=== PATIENT | male | born 1950 ===

== ENCOUNTER 2023-08-13 09:53 | Day surgery (SDC) | payer MEDICARE, BC ==
[~2023-08-13 09:53] MED LIST: Sodium Chloride 0.9% 10 ML Syringe FLUSH PRN; Sodium Chloride 0.9% 10 ML Syringe FLUSH SCH
[2023-08-13] MEDS: Lactated Ringers 1,000 ML IV SCH (10:25)
[2023-08-13] MEDS ORDERED: fentaNYL 100 MCG/2 ML SDV IVPUSH PRN (11:47)
[2023-08-13] MEDS ORDERED: HYDROmorphone 0.5 MG/0.5 ML Syringe IVPUSH PRN (11:47)
[2023-08-13] MEDS ORDERED: Ondansetron 4 MG/2 ML SDV IVPUSH PRN (11:47)
[2023-08-13] MEDS ORDERED: Ondansetron 4 MG/2 ML SDV ONE (11:48)
[2023-08-13] MEDS ORDERED: Propofol 200 MG/20 ML SDV ONE (11:48)
[2023-08-13] MEDS ORDERED: ceFAZolin 2 GM Vial ONE (11:48)
[2023-08-13] MEDS ORDERED: Lidocaine 1% 5 ML VIAL ONE (11:48)
[2023-08-13] MEDS ORDERED: Midazolam 1 MG/ML 2 ML SDV ONE (11:48)
[2023-08-13] MEDS ORDERED: fentaNYL 250 MCG/5 ML SDV ONE (11:48)
[2023-08-13] MEDS ORDERED: EPINEPHrine 1 MG/ML SDV ONE (12:24)
[2023-08-13] MEDS ORDERED: ePHEDrine 50 MG/ML SDV ONE (12:58)
[2023-08-13] MEDS ORDERED: Lactated Ringers 1,000 ML ONE (13:02)
[2023-08-13] MEDS ORDERED: Ketorolac 15 MG/ML SDV ONE (13:08)
[2023-08-13] MEDS: EPINEPHrine 1 MG/ML SDV ONE (13:12)
[2023-08-13] MEDS: Bupivacaine 0.25% 10 ML SDV ONE (13:12)
[2023-08-13] MEDS: Acetaminophen/HYDROcodone 325-5 MG Tab PO ONE (15:20)
== END 2023-08-13 15:40 | disposition home or self-care (01) ==
LOC: JD.SDS 09:53
PROVIDERS: ATTEND Orthopaedic Surgery
DX: S83.241A Other tear of medial meniscus, current injury, right knee, initial encounter (principal); M17.11 Unilateral primary osteoarthritis, right knee; I10 Essential (primary) hypertension; E78.00 Pure hypercholesterolemia, unspecified; Z87.891 Personal history of nicotine dependence; Z79.82 Long term (current) use of aspirin; Z79.899 Other long term (current) drug therapy; X58.XXXA Exposure to other specified factors, initial encounter
CPT/HCPCS: 29881; A9270; J0171; J0665; J0690; J1885; J2250; J2405; J2704; J3010; J7120; 01400; 99100; J3490